=== PATIENT | female | born 1940 | race Caucasian/White ===

== ENCOUNTER 2025-02-27 06:34 | Emergency (ER) | payer BC ==
[~2025-02-27] VITALS: Ht 165.1 cm; Wt 72.6 kg
[2025-02-27] MEDS ORDERED: BENZONATATE 100 MG CAPSULE PO ONE (07:11)
[2025-02-27] MEDS ORDERED: PSEUDOEPHEDRINE HCL 30 MG TABLET ONE (07:12)
[2025-02-27] MEDS: BENZONATATE 100 MG CAPSULE PO PRN (07:13)
[2025-02-27] MEDS: PSEUDOEPHEDRINE HCL 30 MG TABLET PO ONE (07:13)
[2025-02-27 07:23] LABS: PLATELET COUNT (AUTO) 172 K/uL (150-450); RED BLOOD CELL COUNT(AUTO) 4.38 MIL/uL (4.0-5.2); RED CELL DISTRIBUTION WIDTH 12.6 % (11.5-15.0); WHITE BLOOD COUNT (AUTO) 4.7 K/uL (4.3-11.0)
[2025-02-27 07:29] LABS: CALCIUM, SERUM 8.7 mg/dL (8.5-10.1); CREATININE 0.8 mg/dL (0.6-1.3); SODIUM SERUM 143 mmol/L (136-145); UREA NITROGEN, BLOOD 12 mg/dL (7-18)
[2025-02-27 07:43] LABS: ASPARTATE AMINOTRANSFERASE 24 U/L (15-37); NT-PRO BNP 392 pg/mL (0-125); TOTAL PROTEIN, SERUM 7.4 g/dL (6.4-8.2)
[2025-02-27] MEDS ORDERED: BENZ-13 PO (08:25)
[2025-02-27] MEDS ORDERED: ALBU18HF2 INH (08:25)
[2025-02-27 09:54] VITALS: BP 147/85; TEMP 98.6; O2SAT 99
== END 2025-02-27 09:58 | disposition home or self-care (01) ==
LOC: ER 06:43
DX: R05.9 Cough, unspecified (principal); R09.81 Nasal congestion; R06.02 Shortness of breath; Z20.822 Contact with and (suspected) exposure to COVID-19
CPT/HCPCS: 36415; 71045-TC; 80048-TC; 80076-TC; 83880; 84484-TC; 85025-TC